=== PATIENT | female | born 1950 | race Caucasian/White ===

== ENCOUNTER → 2017-09-22 | Outpatient (CLI) | payer MEDICARE, MEDICAID ==
[~2017-09-22] MED LIST: AGGRENOX PO; ALBU2.5V36 INH; ASPI-1441 PO; ASPI-1471 PO; AZIT-18 PO; CEPH500T7 PO; CHOL10005 PO; CHOL200025 PO; CIP500 PO; CLOP75TA43 PO; CYA1000 PO; DOCU50CA4 PO; DUL30 PO; DULO60CA56 PO; FENO145T36 PO; FENO45CA; GEM600 PO; HYDR-385 PO; INSU100I34 SQ; INSU100I8 IM; LANI SC; LEV500 PO; METF-1 PO; METO25TA91 PO; METR250 PO; MORP-23 PO; NAPR220C12 PO; OMEP40CA48 PO; OXYGENHOME INH; PANT20TA27 PO; PER PO; PREG100C44 PO; PREG75CA61 PO; RAN150 PO; RANI-375 PO; ROS10 PO; SEN PO; SITA1TAB17 PO; SUMA100T32 PO; [UNRECOGNIZED DRUG - CODE] PO
[2017-09-22 09:23] LABS: PLATELET COUNT, AUTOMATED 226 K/uL (150-450)
[2017-09-22 09:52] LABS: LDL CHOLESTEROL 55 mg/dl
== END ==
LOC: LAB 08:54
PROVIDERS: ATTEND Family Medicine
DX: I10 Essential (primary) hypertension (principal); E78.5 Hyperlipidemia, unspecified; E53.8 Deficiency of other specified B group vitamins; E55.9 Vitamin D deficiency, unspecified; R73.09 Other abnormal glucose; R30.0 Dysuria; R82.79 Other abnormal findings on microbiological examination of urine
CPT/HCPCS: 36415; 81001; 82040; 82247; 82306; 82310; 82374; 82435; 82465; 82565; 82607; 82947; 83036; 83718; 84075; 84132; 84155; 84295; 84450; 84460; 84478; 84520; 85025; 87088

== ENCOUNTER → 2017-09-22 | Outpatient (CLI) | payer MEDICARE, MEDICAID | LOC: LAB 15:45 | PROVIDERS: ATTEND Family Medicine | DX: R30.0 Dysuria (principal); R82.79 Other abnormal findings on microbiological examination of urine | CPT/HCPCS: 81001; 87088 ==

== ENCOUNTER → 2017-12-01 | Outpatient (CLI) | payer MEDICARE, MEDICAID | LOC: LAB 09:23 | PROVIDERS: ATTEND Family Medicine | DX: Z01.812 Encounter for preprocedural laboratory examination (principal); E11.9 Type 2 diabetes mellitus without complications | CPT/HCPCS: 36415; 82565 ==

== ENCOUNTER → 2017-12-03 | Outpatient (CLI) | payer MEDICARE, MEDICAID ==
[~2017-12-03] MED LIST changes: +IOPAMIDOL 76% 150 ML INFUS BTL 150 ML ONE; +NS 0.9% 150 ML BAG 150 ML ONE
--- NOTE | 2017-12-03 16:53 | RADIOLOGY IMAGING REPORT ---
[place] [facility] [place] NAME: Melissa Yi : 1950 MR: [id number] V: [id number] EXAM DATE: [id number] ORDERING PHYSICIAN: JESUS ROBERTS TECHNOLOGIST: Location: [facility] Patient: Melissa Yi : 1950 Visit/Account:[id number] Date of Sevice: 12/03/2017 CTA RUNOFF HISTORY: Pain. Aortofemoral bypass. Vascular disease. ADDITIONAL HISTORY: None. TECHNIQUE: CTA abdominal aorta and bilateral lower extremities with intravenous contrast. 3D goff l slab MIPs and 2D reconstructions in the coronal and sagittal planes were also created. One of the f [facility] dose optimization techniques was utilized in the performance of this exam: automated exposur e control; adjustment of the mA and/or kv according to patient size; or use of iterative reconstructi on technique. Specific details can be referenced in the facility's radiology CT exam operational lm cy. CONTRAST: 120 mL of Isovue-370 COMPARISON: CT angiogram abdominal aorta with runoff 10/15/2015 FINDINGS: Abdominal aorta: Prior aorto-bifemoral graft with patent aortic and left common iliac stent. Mild n arrowing of the aortic lumen at the proximal aspect of the graft. Mesenteric arteries: Celiac and SMA are patent. Renal arteries: Patent main bilateral renal arteries. Patent accessory left upper pole renal artery. Right lower extremity arterial system Common iliac: Chronic occlusion with chronic occluded aorto-femoral graft External iliac: Reconstituted Internal iliac: Reconstituted Common femoral: Patent femoral-femoral graft. Patent common femoral artery. SFA: Normal Profunda: Normal Popliteal: Normal PT/Peroneal trunk: Normal AT: Patent across the ankle into the foot forming the dorsalis pedis PT: Patent across the ankle into the foot forming the plantar arch Peroneal: Patent to the distal leg Left lower extremity arterial system Common iliac: Chronic occlusion. Patent aorto-left femoral graft. External iliac: Reconstituted Internal iliac: Reconstituted by collaterals Common femoral: Patent femoral-femoral graft. 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 SFA: Normal Profunda: Normal Popliteal: Normal PT/Peroneal trunk: Normal AT: Patent across the ankle into the foot forming the dorsalis pedis PT: Patent across the ankle into the foot forming the plantar arch Peroneal: Patent to the distal leg Visualized lung bases: Negative. Hepatobiliary: Negative. Spleen: Negative. Adrenals: Negative. Pancreas: Stable 1 cm cystic lesion within the uncinate process. Kidneys/ureters/bladder: Negative. Bowel/peritoneum/mesentery: Mild colonic diverticulosis. Vessels: Negative. Lymph nodes: Negative. Pelvic genitourinary: Negative. Bones/body wall: Negative. Other findings: None significant IMPRESSION: 1. Prior aorto-bifemoral graft with patent aorto-left common iliac stent. 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 There is new mild narrowing of the aortic lumen at the proximal aspect of the stent just below the renal arteries 2. Left lower extremity runoff reveals focal dissection within the left common femoral artery which does not appear flow-limiting. There is three-vessel runoff. 3. Right lower extremity runoff reveals no significant stenosis with three-vessel runoff. 4. Stable 1 cm cystic lesion within the uncinate process of the pancreas. Report Dictated By: Art Carpio MD at 12/03/2017 4:14 PM Report E-Signed By: Art Carpio MD at 12/03/2017 4:49 PM WSN:[id number]
== END ==
LOC: CT 02:21
PROVIDERS: ATTEND Family Medicine
DX: R10.9 Unspecified abdominal pain (principal); Z95.828 Presence of other vascular implants and grafts
CPT/HCPCS: 75635; Q9967

== ENCOUNTER → 2018-01-06 | Outpatient (CLI) | payer MEDICARE, MEDICAID ==
[~2018-01-06] MED LIST changes: -IOPAMIDOL 76% 150 ML INFUS BTL 150 ML ONE; -NS 0.9% 150 ML BAG 150 ML ONE
[2018-01-06 14:59] LABS: PLATELET COUNT, AUTOMATED 179 K/uL (150-450)
[2018-01-06 15:00] LABS: LDL CHOLESTEROL 47 mg/dl
== END ==
LOC: LAB 14:34
PROVIDERS: ATTEND Family Medicine
DX: E11.9 Type 2 diabetes mellitus without complications (principal); E78.5 Hyperlipidemia, unspecified
CPT/HCPCS: 36415; 82040; 82247; 82310; 82374; 82435; 82465; 82565; 82947; 83036; 83718; 84075; 84132; 84155; 84295; 84450; 84460; 84478; 84520; 85025

== ENCOUNTER → 2018-04-11 | Outpatient (CLI) | payer MEDICARE, MEDICAID ==
[~2018-04-11] MED LIST changes: +FLUT16SP19 NS
[2018-04-11 15:53] LABS: PLATELET COUNT, AUTOMATED 213 K/uL (150-450)
== END ==
LOC: LAB 15:35
PROVIDERS: ATTEND Family Medicine
DX: R19.7 Diarrhea, unspecified (principal)
CPT/HCPCS: 36415; 82040; 82247; 82310; 82374; 82435; 82565; 82947; 84075; 84132; 84155; 84295; 84450; 84460; 84520; 85025

== ENCOUNTER → 2018-04-14 | Outpatient (CLI) | payer MEDICARE, MEDICAID | LOC: LAB 09:23 | PROVIDERS: ATTEND Family Medicine | DX: R19.7 Diarrhea, unspecified (principal) | CPT/HCPCS: 87045; 87205; 87324; 87449 ==

== ENCOUNTER 2018-04-19 05:49 | Emergency (ER) | payer MEDICARE, MEDICAID ==
--- NOTE | 2018-04-19 05:53 | ER Report ---
History and Physical Time Seen By MD: 05:53 HPI/ROS CHIEF COMPLAINT: Left chest wall pain HISTORY OF PRESENT ILLNESS: The patient is a 67-year-old female who presents emergency department with complaint of left-sided chest wall and rib pain. He states this past Wednesday she was trying to climb over a metal railing and got "hung up" just under her left breast. Since that time she's had discomfort to that area. She denies any bruising. She does state that it hurts to take a deep breath, palpating the area causes pain movement or twisting of the upper chest causes pain. Symptoms improved with rest. She denies any anterior chest wall pressure or pain. Patient is a smoker. She has been self-medicating with Tylenol at home with minimal relief in symptoms. Because the severity of the pain has persisted she presents to the emergency department for evaluation. REVIEW OF SYSTEMS: Respiratory: No cough, no dyspnea. Cardiovascular: Left chest wall pain no palpitations. Gastrointestinal: No vomiting, no abdominal pain. Musculoskeletal: No back pain. Allergies: Coded Allergies: codeine (Verified Allergy, Mild, FLUSHING, NAUSEA AND VOMITING, 04/19/18) Home Meds Active Scripts Oxycodone Hcl/Acetaminophen (OXYCODONE-ACETAMINOPHEN 5-325) 1 Each Tablet, 1 EACH PO Q6H for PAIN, #10 TAB 0 Refills Prov:TRACY HARRIS MD 04/19/18 Fluticasone Prop 50 Mcg Ns (FLONASE 50 MCG NS) 16 Gm [place].susp, 1 SPRAY NS BID for 30 Days, #1 BOT 4 Refills Prov:JESUS ROBERTS MD 04/11/18 Pregabalin (LYRICA) 100 Mg Capsule, 1 CAP PO TID for 30 Days, #90 CAPSULE Prov:JESUS ROBERTS MD 03/15/18 Rosuvastatin Calcium (CRESTOR) 10 Mg Tab, 1 TAB PO HS, #90 TAB 4 Refills Prov:JESUS ROBERTS MD 10/15/17 Clopidogrel Bisulfate (PLAVIX) 75 Mg Tablet, 1 TAB PO QDAY, #90 TAB 4 Refills TAKE ONE TABLET BY MOUTH EVERY DAY Prov:JESUS ROBERTS MD 10/05/17 Insulin Degludec (Tresiba Flextouch U-100) 100 Unit/Ml (3 Ml) Insuln.pen, 40 UNITS IM DAILY for 90 Days, #1 BOX 4 Refills Prov:JESUS ROBERTS MD 09/22/17 Duloxetine Hcl (CYMBALTA) 60 Mg Capsule.dr, 1 CAP PO QDAY for 90 Days, #90 CAP 4 Refills Prov:JESUS ROBERTS MD 09/07/17 Sumatriptan Succinate (IMITREX) 100 Mg Tablet, 1 TAB PO PRN for 30 Days, #9 TAB 0 Refills 1 tab po prn with aleve, take every 3 hours for migrain. DO NOT excede 2 tabs in 24 hours. Prov:SOCO MACHADO MD 07/08/17 Sitagliptin Phos/Metformin Hcl (JANUMET 50-1,000 MG TABLET) 1 Each Tablet, 1 EACH PO BID for 90 Days, #180 TAB 4 Refills Prov:JESUS ROBERTS MD 06/08/17 Pantoprazole Sodium (PANTOPRAZOLE SODIUM) 20 Mg Tablet.dr, 1 TAB PO QDAY, #90 TAB.SR Prov:JESUS ROBERTS MD 04/23/17 Reported Medications Cyanocobalamin (Vitamin B-12) (VITAMIN B-12) 1,000 Mcg Tablet, 1 TAB PO DAILY 10/25/17 Cholecalciferol (Vitamin D3) (VITAMIN D3) 1,000 Unit Tablet, 1 TAB PO DAILY, TAB 04/13/17 Oxygen (OXYGEN) Inha, 2 L INH HS, L CPAP 04/09/17 Albuterol Sulfate 0.083% (ALBUTEROL SULFATE 0.083%) 2.5 Mg/3 Ml Vial.neb, 1 VIAL INH TID, INH 04/09/17 Past Medical/Surgical History Past medical history for abdominal aortic aneurysm, DVT, hyperlipidemia, hy pertension, COPD, pancreatitis, type II diabetes past surgical history for AAA repair with them popliteal bypass, appendectomy, hysterectomy spinal surgery L3- L5 Hx Smoking: Yes Smoking Status: Current: Every Day Smoker Hx Substance Use Disorder: No Hx Alcohol Use: No Constitutional Vital Sign - Last 24 Hours 04/19/18 04/19/18 04/19/18 04/19/18 05:49 05:52 05:53 06:00 Temp 97.8 Pulse ??? 95 Resp 16 B/P (MAP) 162/84 162/84 (110) 135/73 (93) Pulse Ox 97 04/19/18 04/19/18 04/19/18 04/19/18 06:04 06:19 06:30 06:34 Pulse 81 ??? 78 B/P (MAP) 124/50 (74) 128/66 (86) Pulse Ox 92 92 Physical Exam General Appearance: The patient is alert, has no immediate need for airway protection and no current signs of toxicity. Eyes: Pupils equal and round no injection. Respiratory: Lungs are clear to auscultation bilaterally. The left anterior chest wall just under the left breast is tender there is no obvious deformity or paradoxical chest wall motion. There is no ecchymosis. Cardiac: regular rate and rhythm [ ] Gastrointestinal: Abdomen is soft and non tender, no masses, bowel sounds normal. Musculoskeletal: Neck: Neck is supple and non tender. Extremities have full range of motion and are non tender. Skin: No rashes or lesions. [ ] Medical Decision Making EKG/Imaging Imaging XR-neg for PTX or acute fracture FACILITY: [facility] [place] PATIENT NAME: Melissa Yi : 1950 MR: [id number] V: [id number] EXAM DATE: [id number] ORDERING PHYSICIAN: TRACY HARRIS TECHNOLOGIST: Location: [facility] [place] Patient: Melissa Yi : 1950 Visit/Account:[id number] Date of Sevice: 04/19/2018 INDICATION: Left anterior rib injury/pain. History of COPD. COMPARISON: Chest radiographs 01/18/2017. FINDINGS: 2 PA images of the chest, lateral image of the chest, and 2 views of the left ribs. Lungs are well-expanded. Bilateral mild left lower lung scarring/atelectasis. No pneumothorax or pleural effusion. Pulmonary vasculature is unremarkable. Heart size is normal. Incompletely imaged aortic stent. No displaced fracture. IMPRESSION: 1. No displaced rib fracture. 2. Mild left lower lung scarring/atelectasis. Report Dictated By: Rikki Ellsworth MD at 04/19/2018 6:34 AM Report E-Signed By: Rikki Ellsworth MD at 04/19/2018 6:39 AM WSN:[id number] ED Course/Re-evaluation ED Course 04/19/2018 6:02:10 am plan at this time will be to obtain left-sided rib series along with a chest x-ray. Decision to Disposition Date: Apr 19, 2018 Decision to Disposition Time: 07:00 Depart Departure Latest Vital Signs Vital Signs Date Time Temp Pulse Resp B/P (MAP) Pulse Ox O2 Delivery O2 Flow Rate FiO2 04/19/18 06:34 78 92 04/19/18 06:30 128/66 (86) 04/19/18 05:52 97.8 16 Impression: Primary Impression: Chest wall pain Condition: Improved Disposition: HOME OR SELF-CARE Referrals: JESUS ROBERTS MD (PCP) New Scripts Oxycodone Hcl/Acetaminophen (OXYCODONE-ACETAMINOPHEN 5-325) 1 Each Tablet 1 EACH PO Q6H for PAIN, #10 TAB 0 Refills Prov: TRACY HARRIS MD 04/19/18 Patient Instructions: Chest Wall Pain (ED) Additional Instructions: . If your symptoms persist greater than 7 days you should also be reevaluated either by your primary care provider or return to the emergency department. TRACY HARRIS MD Apr 19, 2018 05:53
[2018-04-19 06:30] VITALS: BP 128/66
[2018-04-19] MEDS ORDERED: OXYC-373 PO (06:31)
[2018-04-19] MEDS ORDERED: oxyCODONE/ACETAMIN 5/325MG TH 2 TAB/BOTTLE PO ONE (06:35)
--- NOTE | 2018-04-19 06:43 | RADIOLOGY IMAGING REPORT ---
FACILITY: [facility] - [place] PATIENT NAME: Melissa Yi : 1950 MR: [id number] V: [id number] EXAM DATE: ORDERING PHYSICIAN: TRACY HARRIS TECHNOLOGIST: Location: [facility] [place] Patient: Melissa Yi : 1950 Visit/Account:[id number] Date of Sevice: 04/19/2018 INDICATION: Left anterior rib injury/pain. History of COPD. COMPARISON: Chest radiographs 01/18/2017. FINDINGS: 2 PA images of the chest, lateral image of the chest, and 2 views of the left ribs. Lungs are well-expanded. Bilateral mild left lower lung scarring/atelectasis. No pneumothorax or pleural effusion. Pulmonary vasculature is unremarkable. Heart size is normal. Incompletely imaged aortic stent. No displaced fracture. IMPRESSION: 1. No displaced rib fracture. 2. Mild left lower lung scarring/atelectasis. Report Dictated By: Rikki Ellsworth MD at 04/19/2018 6:34 AM Report E-Signed By: Rikki Ellsworth MD at 04/19/2018 6:39 AM WSN:[id number]
--- NOTE | 2018-04-19 06:43 | RADIOLOGY IMAGING REPORT ---
FACILITY: [facility] [place] PATIENT NAME: Melissa Yi : 1950 MR: [id number] V: [id number] EXAM DATE: ORDERING PHYSICIAN: TRACY HARRIS TECHNOLOGIST: Location: [facility] - [place] Patient: Melissa Yi : 1950 Visit/Account:[id number] Date of Sevice: 04/19/2018 INDICATION: Left anterior rib injury/pain. History of COPD. COMPARISON: Chest radiographs 01/18/2017. FINDINGS: 2 PA images of the chest, lateral image of the chest, and 2 views of the left ribs. Lungs are well-expanded. Bilateral mild left lower lung scarring/atelectasis. No pneumothorax or pleural effusion. Pulmonary vasculature is unremarkable. Heart size is normal. Incompletely imaged aortic stent. No displaced fracture. IMPRESSION: 1. No displaced rib fracture. 2. Mild left lower lung scarring/atelectasis. Report Dictated By: Rikki Ellsworth MD at 04/19/2018 6:34 AM Report E-Signed By: Rikki Ellsworth MD at 04/19/2018 6:39 AM WSN:[id number]
[2018-04-20] MEDS ORDERED: PREG100C44 PO (08:04)
== END 2018-04-19 06:40 | disposition home or self-care (01) ==
LOC: ER 06:24
DX: R07.81 Pleurodynia (principal)
CPT/HCPCS: 71046; 71100; 99284

== ENCOUNTER → 2018-06-06 | Outpatient (CLI) | payer MEDICARE, MEDICAID ==
[~2018-06-06] MED LIST changes: +DICL100G39 TOP; +OXYC-373 PO; +PNEU0.5D3 IM
--- NOTE | 2018-06-06 15:10 | RADIOLOGY IMAGING REPORT ---
[place] [facility] [place]IENT NAME: Melissa Yi : 1950 MR: [id number] V: [id number] EXAM DATE: ORDERING PHYSICIAN: JESUS ROBERTS TECHNOLOGIST: [place] [facility] [place]: Melissa Yi : 1950 Visit/Account:[id number] Date of Sevice: 06/06/2018 DEXA Scan Clinical history: Postmenopausal. Comparison: DEXA scan from 12/16/2010. LUMBAR SPINE: The bone mineral density (BMD) measured from L1-L4 correlates with a Z-score of 2.4 and a T-score of 0.6 which is Normal as defined by the World Health Organization. The corresponding risk of fracture in the lumbar spine is Not increased compared with a young adult reference population. This value sargent s increased by 7.1 % since the prior study. More than 5% change is considered significant. HIP: Bone mineral density (BMD) measured in the LEFT total hip region correlates with a Z-score -1 and a T -score of is 2.4 which is osteopenia as defined by the World Health Organization. The corresponding risk of fracture in the hip is 4-6 times increased compared to a young adult reference population. Th is value has increase by 0.6 % since the prior study. More than 5% change is considered significant. T score left femoral neck -2.1 Bone mineral density (BMD) measured in the Femoral Neck region measures 0.749 g/cm?. IMPRESSION: 1. Lumbar spine: Normal. There has been 7.1% increase in the bone mineral density since the previou s exam. 2. Left Total Hip: Osteopenia. There has been 0.6% increase in the bone mineral density since the p revious exam. 3. Femoral Neck: Bone Mineral Density is 0.749 g/cm? The next DEXA scan of this patient should include the following sites: L1-L4 and the left hip. FRAX? WHO Fracture Risk Assessment Tool link: <http://www.shef.ac.uk/FRAX/tool.jsp?locationValue=9> PLEASE NOTE: 1) The World Health Organization defines low BMD as follows: T-score Normal > -1 Osteopenia < -1 and > -2.5 Osteoporosis < -2.5 without fractures Established osteoporosis < -2.5 with fractures 2) In general, you may wish to consider: Diagnosis Treatment Follow-up DEXA Normal BMD Prevention 2-3 years Osteopenia Prevention/therapy 1-2 years Osteoporosis Therapy Yearly 3) Fracture risk estimated from the T-score is more accurate for vertebral fractures (often spontane ous) than for hip fractures. Report Dictated By: Brandy Streeter MD at 06/06/2018 3:04 PM Report E-Signed By: Brandy Streeter MD at 06/06/2018 3:06 PM WSN:[id number]
--- NOTE | 2018-06-07 16:42 | RADIOLOGY IMAGING REPORT ---
FACILITY: PATIENT NAME: MANDY ABERNATHY : [id number] MR: [id number] V: [id number] EXAM DATE: [id number] ORDERING PHYSICIAN: JESUS ROBERTS TECHNOLOGIST: Jesi Kuo PROCEDURE:BILATERAL DIGITAL SCREENING MAMMOGRAM WITH CAD ASSISTED INTERPRETATION & 3D TOMOSYNTHESIS COMPARISON:Prior mammograms 07/14/16. INDICATIONS:screening FINDINGS: Moderately heterogeneous fibroglandular tissue is seen throughout the breasts. The parenchymal pattern has remained stable allowing for difference in mammographic technique & patient positioning. There is no evidence of malignant appearing mass, malignant appearing calcifications or other secondary sign of malignancy in either breast. DIAGNOSTIC CATEGORY 1--NEGATIVE. RECOMMENDATIONS: ROUTINE MAMMOGRAM AND CLINICAL EVALUATION. IMPRESSION: BIRADS 1: Negative. No significant abnormality is seen. Dictated by: Brandy Streeter M.D. on 06/06/2018 at 17:08 Transcribed by: JM on 06/07/2018 at 9:03 Approved by: Brandy Streeter M.D. on 06/07/2018 at 16:41 [facility]
== END ==
LOC: MAMO 03:41
PROVIDERS: ATTEND Family Medicine
DX: Z12.31 Encounter for screening mammogram for malignant neoplasm of breast (principal); Z78.0 Asymptomatic menopausal state; M85.80 Other specified disorders of bone density and structure, unspecified site
CPT/HCPCS: 77063; 77067; 77080

== ENCOUNTER → 2018-10-24 | Outpatient (CLI) | payer MEDICARE, MEDICAID ==
[~2018-10-24] MED LIST changes: +BUS5 PO; -ROS10 PO; +ROSU10TA PO
[2018-10-24 09:33] LABS: PLATELET COUNT, AUTOMATED 185 K/uL (150-450)
== END ==
LOC: LAB 09:20
PROVIDERS: ATTEND Family Medicine
DX: R53.83 Other fatigue (principal); E11.9 Type 2 diabetes mellitus without complications
CPT/HCPCS: 36415; 82040; 82247; 82310; 82374; 82435; 82565; 82947; 83036; 84075; 84132; 84155; 84295; 84443; 84450; 84460; 84520; 85025

== ENCOUNTER → 2019-03-01 | Outpatient (CLI) | payer MEDICARE, MEDICAID ==
[~2019-03-01] MED LIST changes: +ACET500T68 PO; +ASPI81TA94 PO; +CYAN25005 SL; +FAMC500T18 PO; +METF-450 PO; +METF-452 PO; -RANI-375 PO; +RANI-886 PO; +VARE1TAB3 PO
[2019-03-01 14:27] LABS: PLATELET COUNT, AUTOMATED 181 K/uL (150-450)
== END ==
LOC: LAB 13:41
PROVIDERS: ATTEND Family Medicine
DX: E11.9 Type 2 diabetes mellitus without complications (principal)
CPT/HCPCS: 36415; 82040; 82247; 82310; 82374; 82435; 82565; 82947; 83036; 84075; 84132; 84155; 84295; 84450; 84460; 84520; 85025